=== PATIENT | male | born 1940 | race Caucasian/White ===

== ENCOUNTER 2018-01-08 16:08 | Emergency (ER) | payer MEDICARE ==
[~2018-01-08] VITALS: Ht 170.1 cm; Wt 83.5 kg
[~2018-01-08 16:08] MED LIST: ASPIRIN81 M1 PO; HYDROCODONE BIT1 T11 PO; IBU800 MG PO; LOPRESSOR50 MG PO; OMEPRAZOLE20 MG PO; PERCOCET 325 MG1 TA2 PO
== END 2018-01-08 18:35 | disposition home or self-care (01) ==
LOC: ED 16:08
DX: S61.412A Laceration without foreign body of left hand, initial encounter (principal); Z79.899 Other long term (current) drug therapy; Z79.82 Long term (current) use of aspirin; W18.31XA Fall on same level due to stepping on an object, initial encounter; Y93.89 Activity, other specified; Y92.89 Other specified places as the place of occurrence of the external cause; Y99.8 Other external cause status

== ENCOUNTER → 2021-03-10 | Outpatient (CLI) | payer MEDICARE | END | disposition home or self-care (01) | LOC: US 13:55 | PROVIDERS: ATTEND Urology | DX: N28.1 Cyst of kidney, acquired (principal); R32 Unspecified urinary incontinence ==

== ENCOUNTER → 2021-07-14 | Outpatient (CLI) | payer MEDICARE ==
[2021-07-14 15:01] LABS: BASO % 0.4 % (0.0-1.0); EOS # 0.2 10*3/uL (0.0-0.4); HEMATOCRIT 33.5 % (42.0-52.0); LYMPH # 1.6 10*3/uL (1.3-4.4); LYMPH % 27.5 % (27.0-41.0); MEAN CELL VOLUME 94.4 fl (80.0-94.0); MEAN CORPUSCULAR HGB 32.7 pg (27.0-31.0); MEAN CORPUSCULAR HGB CONC 34.6 g/dl (33.0-37.0); MEAN PLATELET VOLUME 11.5 fl (9.6-12.3); MONO # 0.6 10*3/uL (0.1-1.0); MONO % 9.8 % (3.0-9.0); NEUT # 3.4 10*3/uL (2.3-7.9); NEUT % 59.1 % (47.0-73.0); PLATELET COUNT AUTOMATED 112 10*3/uL (130-400); RED BLOOD COUNT 3.55 10*6/uL (4.50-5.90); RED CELL DISTRI WIDTH 12.9 % (0-14.5); WHITE BLOOD COUNT 5.7 10*3/uL (4.8-10.8)
[2021-07-14 15:10] LABS: ACT PARTIAL THROMBO TIME 28.5 SECONDS (20.0-32.1); INTERNATIONAL NORM RATIO 1.1 (2.0-3.5)
[2021-07-14 15:18] LABS: BUN 26 mg/dl (7-24); CHLORIDE 108 mmol/L (98-107); POTASSIUM 4.3 mmol/L (3.5-5.1); SODIUM 141 mmol/L (136-145)
[2021-07-14 15:24] LABS: ALKALINE PHOSPHATASE 89 U/L (45-117); CREATININE 1.18 mg/dL (0.70-1.30); SGOT/AST 17 IU/L (3-35); SGPT/ALT 19 U/L (12-78)
== END | disposition home or self-care (01) ==
LOC: LAB 14:36
PROVIDERS: ATTEND Urology
DX: Z01.818 Encounter for other preprocedural examination (principal); D68.8 Other specified coagulation defects; M85.88 Other specified disorders of bone density and structure, other site; M51.34 Other intervertebral disc degeneration, thoracic region

== ENCOUNTER 2022-08-10 14:58 | Emergency (ER) | payer MEDICARE ==
[~2022-08-10] VITALS: Ht 175.2 cm; Wt 86.2 kg
== END 2022-08-10 16:29 | disposition home or self-care (01) ==
LOC: ED 14:58
DX: S08.0XXA Avulsion of scalp, initial encounter (principal); Z79.899 Other long term (current) drug therapy; Z79.82 Long term (current) use of aspirin; W18.39XA Other fall on same level, initial encounter; Y93.89 Activity, other specified; Y92.89 Other specified places as the place of occurrence of the external cause; Y99.8 Other external cause status

== ENCOUNTER 2022-08-14 12:55 | Inpatient (IN) | payer MEDICARE ==
[2022-08-14] VITALS (7 sets, daily range): BP systolic 112–157; BP diastolic 45–67
[~2022-08-14] VITALS: Ht 175.2 cm; Wt 90.7 kg
[2022-08-14 13:54] LABS: BASO % 0.3 % (0.0-1.0); EOS # 0.2 10*3/uL (0.0-0.4); EOS % 2.6 % (1.0-4.0); HEMATOCRIT 34.7 % (42.0-52.0); LYMPH # 1.3 10*3/uL (1.3-4.4); LYMPH % 19.3 % (27.0-41.0); MEAN CELL VOLUME 95.9 fl (80.0-94.0); MEAN CORPUSCULAR HGB 32.6 pg (27.0-31.0); MEAN PLATELET VOLUME 11.9 fl (9.6-12.3); MONO # 0.7 10*3/uL (0.1-1.0); MONO % 10.9 % (3.0-9.0); NEUT # 4.4 10*3/uL (2.3-7.9); NEUT % 66.7 % (47.0-73.0); PLATELET COUNT AUTOMATED 124 10*3/uL (130-400); RED BLOOD COUNT 3.62 10*6/uL (4.50-5.90); RED CELL DISTRI WIDTH 12.3 % (0-14.5); WHITE BLOOD COUNT 6.5 10*3/uL (4.8-10.8)
[2022-08-14] MEDS ORDERED: MAGNESIUM OXID400 MG PO (13:55)
[2022-08-14] MEDS ORDERED: POTASSIUM CHLO20 ME3 PO (13:55)
[2022-08-14] MEDS ORDERED: FLOMAX0.4 MG PO (13:56)
[2022-08-14] MEDS ORDERED: FUROSEMIDE40 MG PO (13:57)
[2022-08-14] MEDS ORDERED: PLAVIX75 M1 PO (13:57)
[2022-08-14] MEDS ORDERED: SERTRALINE HYDR50 MG PO (13:57)
[2022-08-14] MEDS ORDERED: FINASTERIDE5 M1 PO (13:59)
[2022-08-14] MEDS ORDERED: NORVASC2.5 MG PO (13:59)
[2022-08-14] MEDS ORDERED: TOPROL XL25 MG PO (14:00)
[2022-08-14] MEDS ORDERED: ATORVASTATIN CA20 M1 PO (14:00)
[2022-08-14] MEDS ORDERED: VITAMIN D325 MCG PO (14:01)
[2022-08-14] MEDS ORDERED: TRAZODONE50 MG PO (14:01)
[2022-08-14] MEDS ORDERED: VITAMIN B12 (14:02)
[2022-08-14 14:04] LABS: INTERNATIONAL NORM RATIO 1.1 (2.0-3.5)
[2022-08-14] MEDS ORDERED: DONEPEZIL HCL10 MG PO (14:04)
[2022-08-14] MEDS ORDERED: MEMANTINE HCL ER7 MG PO (14:05)
[2022-08-14 14:19] LABS: ALKALINE PHOSPHATASE 115 U/L (46-116); BUN 20 mg/dl (9-23); CHLORIDE 105 mmol/L (98-107); LIPASE 38 U/L (12-53); POTASSIUM 4.5 mmol/L (3.4-5.1); SGPT/ALT 12 U/L (10-49); TOTAL PROTEIN 6.9 gm/dL (6.0-8.0)
[2022-08-15 00:30] VITALS: BP 114/68
[2022-08-15 01:30] VITALS: BP 120/72
[2022-08-15 03:45] VITALS: BP 126/88
[2022-08-15 04:42] VITALS: BP 107/44
[2022-08-15 06:31] VITALS: BP 100/41
[2022-08-15 06:52] LABS: BASO % 0.4 % (0.0-1.0); EOS # 0.1 10*3/uL (0.0-0.4); EOS % 1.7 % (1.0-4.0); HEMATOCRIT 35.3 % (42.0-52.0); LYMPH # 1.3 10*3/uL (1.3-4.4); LYMPH % 24.7 % (27.0-41.0); MEAN CELL VOLUME 96.2 fl (80.0-94.0); MEAN CORPUSCULAR HGB 32.2 pg (27.0-31.0); MEAN CORPUSCULAR HGB CONC 33.4 g/dl (33.0-37.0); MEAN PLATELET VOLUME 11.4 fl (9.6-12.3); MONO # 0.7 10*3/uL (0.1-1.0); MONO % 12.4 % (3.0-9.0); NEUT # 3.3 10*3/uL (2.3-7.9); NEUT % 60.6 % (47.0-73.0); PLATELET COUNT AUTOMATED 108 10*3/uL (130-400); RED BLOOD COUNT 3.67 10*6/uL (4.50-5.90); RED CELL DISTRI WIDTH 12.2 % (0-14.5); WHITE BLOOD COUNT 5.4 10*3/uL (4.8-10.8)
[2022-08-15 07:31] LABS: ALKALINE PHOSPHATASE 107 U/L (46-116); BUN 25 mg/dl (9-23); CHLORIDE 105 mmol/L (98-107); CHOLESTEROL 99 mg/dL (<200); FREE T4 0.93 ng/dl (0.89-1.76); LDL CHOLESTEROL 48 mg/dL (9-159); POTASSIUM 4.2 mmol/L (3.4-5.1); SGPT/ALT 10 U/L (10-49); THYROID STIM HORMONE (HS) 3.441 uIU/ml (0.550-4.780); TOTAL PROTEIN 6.6 gm/dL (6.0-8.0); TRIGLYCERIDES 80 mg/dl (<150)
[2022-08-15 08:00] VITALS: BP 118/47
[2022-08-15 08:20] LABS: VITAMIN D, 25-HYDROXY 44.4 ng/mL (30-100)
[2022-08-15] MEDS ORDERED: LIPITOR40 MG PO (12:48)
== END 2022-08-15 17:11 | disposition home or self-care (01) | DRG 206 ==
LOC: ED 12:55 → EDHOLD 14:54
PROVIDERS: Emergency Medicine; Registered Nurse; ADMIT Internal Medicine; ATTEND Internal Medicine
PROC: 4A02XM4 Measurement of Cardiac Total Activity, External Approach (ICD-10-PCS; principal; 2022-08-15)
PROC: 3E073KZ Introduction of Other Diagnostic Substance into Coronary Artery, Percutaneous Approach (ICD-10-PCS; 2022-08-15)
DX: M94.0 Chondrocostal junction syndrome [Tietze] (principal); I10 Essential (primary) hypertension; F32.A Depression, unspecified; I25.10 Atherosclerotic heart disease of native coronary artery without angina pectoris; N40.0 Benign prostatic hyperplasia without lower urinary tract symptoms; M25.511 Pain in right shoulder; E78.2 Mixed hyperlipidemia; Z90.49 Acquired absence of other specified parts of digestive tract; Z95.1 Presence of aortocoronary bypass graft; Z95.5 Presence of coronary angioplasty implant and graft; Z79.82 Long term (current) use of aspirin; Z79.899 Other long term (current) drug therapy

== ENCOUNTER 2022-11-26 08:53 | Emergency (ER) | payer MEDICARE ==
[~2022-11-26] VITALS: Ht 175.2 cm; Wt 85.3 kg
[~2022-11-26 08:53] MED LIST changes: +ATORVASTATIN CA20 M1 PO; +DONEPEZIL HCL10 MG PO; +FINASTERIDE5 M1 PO; +FLOMAX0.4 MG PO; +FUROSEMIDE40 MG PO; +LIPITOR40 MG PO; +MAGNESIUM OXID400 MG PO; +MEMANTINE HCL ER7 MG PO; +NORVASC2.5 MG PO; +PLAVIX75 M1 PO; +POTASSIUM CHLO20 ME3 PO; +SERTRALINE HYDR50 MG PO; +TOPROL XL25 MG PO; +TRAZODONE50 MG PO; +VITAMIN B12; +VITAMIN D325 MCG PO
[2022-11-26 10:11] LABS: BASO % 0.5 % (0.0-1.0); EOS # 0.3 10*3/uL (0.0-0.4); EOS % 4.7 % (1.0-4.0); HEMATOCRIT 36.4 % (42.0-52.0); LYMPH # 1.3 10*3/uL (1.3-4.4); LYMPH % 24.1 % (27.0-41.0); MEAN CELL VOLUME 95.8 fl (80.0-94.0); MEAN CORPUSCULAR HGB 32.9 pg (27.0-31.0); MEAN CORPUSCULAR HGB CONC 34.3 g/dl (33.0-37.0); MEAN PLATELET VOLUME 11.9 fl (9.6-12.3); MONO # 0.5 10*3/uL (0.1-1.0); MONO % 8.9 % (3.0-9.0); NEUT # 3.4 10*3/uL (2.3-7.9); NEUT % 61.6 % (47.0-73.0); PLATELET COUNT AUTOMATED 117 10*3/uL (130-400); WHITE BLOOD COUNT 5.5 10*3/uL (4.8-10.8)
[2022-11-26 10:22] LABS: ACT PARTIAL THROMBO TIME 27.9 SECONDS (20.0-32.1); INTERNATIONAL NORM RATIO 1.1 (2.0-3.5)
[2022-11-26 10:32] LABS: POTASSIUM 4.3 mmol/L (3.4-5.1)
[2022-11-26] MEDS ORDERED: HYDROCODONE-AC1 EAC1 PO (11:59)
== END 2022-11-26 12:27 | disposition home or self-care (01) ==
LOC: ED 08:53
PROVIDERS: Emergency Medicine
DX: S22.41XA Multiple fractures of ribs, right side, initial encounter for closed fracture (principal); K21.9 Gastro-esophageal reflux disease without esophagitis; I25.10 Atherosclerotic heart disease of native coronary artery without angina pectoris; D64.9 Anemia, unspecified; E78.5 Hyperlipidemia, unspecified; Z90.49 Acquired absence of other specified parts of digestive tract; Z95.5 Presence of coronary angioplasty implant and graft; W18.09XA Striking against other object with subsequent fall, initial encounter; Y93.01 Activity, walking, marching and hiking; Y92.000 Kitchen of unspecified non-institutional (private) residence as the place of occurrence of the external cause; Y99.8 Other external cause status